=== PATIENT | male | born 1950 | race Caucasian/White ===

== ENCOUNTER 2017-04-07 09:19 | Emergency (ER) | payer MEDICARE ==
[2017-04-07 09:52] VITALS: BP 146/66
--- NOTE | 2017-04-07 09:59 | UC ---
Throat Pain/Nasal Robin HPI - HPI Summary HPI Summary: Patient c/o cough, body aches, sinus pressure, and chest congestion x 1 week. Symptoms worsening. Now with MCKEON and upper tooth tenderness in the sinus area. has had hoarse voice. has had concern that is is moving in to the chest. [ End ] - History of Current Complaint Chief Complaint: UCRespiratory Stated Complaint: COUGH,CHEST CONGESTION Time Seen by Provider: 04/07/17 09:57 Hx Obtained From: Patient Onset/Duration: Gradual Onset Severity: Mild Cough: Productive Associated Signs & Symptoms: Positive: Sinus Discomfort, Nasal Discharge - Epiglottits Risk Factors Epiglottis Risk Factors: Negative - Allergies/Home Medications Allergies/Adverse Reactions: Allergies Allergy/AdvReac Type Severity Reaction Status Date / Time cats Allergy Eyes Uncoded 04/07/17 09:52 Itchy/Swollen/Red/Watery hay fever Allergy Congestion Uncoded 04/07/17 09:52 Home Medications: Home Medications Fluticasone/Vilanterol MDI(NF) [Breo Ellipta MDI (NF)] 1 puff INH DAILY [History Confirmed 04/07/17] Sitagliptin Phosphate [Januvia] 1 tab PO DAILY 04/07/17 [History Confirmed 04/07] PMH/Surg Hx/FS Hx/Imm Hx Previously Healthy: Yes Endocrine History Of: Reports: Diabetes Denies: Thyroid Disease Cardiovascular History Of: Reports: Hypertension Denies: Cardiac Disorders Respiratory History Of: Reports: Asthma - Surgical History Surgical History: Yes Surgery Procedure, Year, and Place: Bilateral TKA 2007. Cataracts. left hand 2014 - Family History Known Family History: Positive: None - Social History Occupation: Retired Lives: With Family Alcohol Use: None Substance Use Type: None Smoking Status (MU): Never Smoked Tobacco Review of Systems Constitutional: Negative Skin: Negative Eyes: Negative ENT: Nasal Discharge, Other - sinus pressure to palpation Respiratory: Cough Cardiovascular: Negative Gastrointestinal: Negative Genitourinary: Negative Motor: Negative Neurovascular: Negative Musculoskeletal: Negative Neurological: Negative Psychological: Negative All Other Systems Reviewed And Are Negative: Yes Physical Exam Triage Information Reviewed: Yes Appearance: Well-Appearing, No Pain Distress, Well-Nourished Vital Signs: Initial Vital Signs Temp 98 F 04/07/17 09:46 Pulse 65 04/07/17 09:46 Resp 18 04/07/17 09:46 BP 146/66 04/07/17 09:46 Pulse Ox 99 04/07/17 09:46 Vital Signs Reviewed: Yes Eye Exam: Normal ENT Exam: Normal ENT: Positive: Nasal congestion, Nasal drainage, TM dull, Other: - mild frontal sinus tenderness. Negative: Pharyngeal erythema, Tonsillar swelling, Tonsillar exudate Dental Exam: Normal Neck exam: Normal Neck: Positive: 1 Respiratory Exam: Normal Cardiovascular Exam: Normal Cardiovascular: Positive: RRR, Pulses Normal, Murmur:Sys:Grade _?_/ - 2 Musculoskeletal Exam: Normal Neurological Exam: Normal Psychological Exam: Normal Skin Exam: Normal Throat Pain/Nasal Course/Dx - Course Course Of Treatment: Advised to see PCP for Murmur / BP / cardiovascular concerns. He will not start antibiotic unless Sx worsen and will f/u PCP - Differential Dx/Diagnosis Differential Diagnosis/HQI/PQRI: Pharyngitis, Tonsillitis, URI Provider Diagnoses: Sinusitis and heart murmur and hypertension Discharge - Discharge Plan Condition: Good Disposition: HOME Prescriptions: Amoxicillin/Clavulanate TAB* [Augmentin TAB 875*] 875 mg PO BID #14 tab Benzonatate [Benzonatate 200 MG CAP] 200 mg PO TID #20 cap Montelukast Sodium TAB* [Singulair TAB*] 10 mg PO BEDTIME #30 tab Patient Education Materials: Sinusitis (ED), Heart Murmur (ED) Referrals: Mingo Zimmer MD [Primary Care Provider] - 3 Days (for follow up and to discuss MURMUR with PCP) Additional Instructions: PLEASE DO NOT START ANTIBIOTIC UNLESS YOUR SYMPTOMS WORSEN OR ARE NOT IMPROVED IN 3-4 DAYS.
== END 2017-04-07 10:20 | disposition home or self-care (01) ==
LOC: UCCORT 09:19
DX: J32.9 Chronic sinusitis, unspecified (principal); R01.1 Cardiac murmur, unspecified; I10 Essential (primary) hypertension; E11.9 Type 2 diabetes mellitus without complications; J45.909 Unspecified asthma, uncomplicated; Z98.49 Cataract extraction status, unspecified eye
CPT/HCPCS: 99212; G0463

== ENCOUNTER 2017-07-29 16:46 | Emergency (ER) | payer MEDICARE ==
[2017-07-29 17:27] VITALS: BP 149/82
--- NOTE | 2017-07-29 17:47 | UC ---
Skin Complaint HPI - HPI Summary HPI Summary: Pt presents with c/o tenderness, erythema and possible insect bit to left medial forearm. Pt reports that he is unsure if he was it or stung by insect but noticed that he had tender reddened area on left medial forearm. 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 - History of Current Complaint Chief Complaint: UCSkin Time Seen by Provider: 07/29/17 17:40 Stated Complaint: IRRITATION FOREARM Hx Obtained From: Patient Onset/Duration: Gradual Onset, Lasting Days - 1, Still Present, Worse Since - initial onset Skin Exposure Onset/Duration: Days Ago - 1 Onset Severity: Mild Current Severity: Mild Location: Discrete - left mid, medial forearm Character: Swelling, Pain, Redness, Raised Aggravating: Touch Alleviating: Unknown Associated Signs & Symptoms: Positive: Tenderness Related History: Possible Reaction to: Insect - unsure - Allergy/Home Medications Allergies/Adverse Reactions: Allergies Allergy/AdvReac Type Severity Reaction Status Date / Time cats Allergy Eyes Uncoded 07/29/17 17:26 Itchy/Swollen/Red/Watery hay fever Allergy Congestion Uncoded 07/29/17 17:26 Review of Systems Constitutional: Negative Skin: Other - erythema, tenderness, mild swelling and eraser size scab in center of erythema Eyes: Negative ENT: Negative Respiratory: Negative Cardiovascular: Negative Gastrointestinal: Negative Genitourinary: Negative Motor: Negative Neurovascular: Negative Musculoskeletal: Negative Neurological: Negative Psychological: Negative All Other Systems Reviewed And Are Negative: Yes PMH/Surg Hx/FS Hx/Imm Hx - Additional Past Medical History Additional PMH: left knee septic joint X 2. Hx MRSA Previously Healthy: Yes - Surgical History Surgical History: Yes Surgery Procedure, Year, and Place: Bilateral TK Replacements 2008. Cataracts. left hand 2015. Left knee surgery X 4. two total knee replacments, 2 septic joint, spacers, antibiotic Infusion treatment - Family History Known Family History: Positive: Cardiac Disease - Social History Occupation: Retired Lives: With Family Alcohol Use: None Substance Use Type: None Smoking Status (MU): Never Smoked Tobacco Have You Smoked in the Last Year: No - Immunization History Most Recent Influenza Vaccination: No Physical Exam Triage Information Reviewed: Yes Appearance: Well-Appearing Vital Signs: Initial Vital Signs Temp 98.6 F 07/29/17 17:22 Pulse 68 09/03/17 17:22 Resp 16 07/29/17 17:22 BP 149/82 07/29/17 17:22 Pulse Ox 100 07/29/17 17:22 Vital Signs Reviewed: No Eye Exam: Normal ENT Exam: Normal Neck exam: Normal Respiratory Exam: Normal Cardiovascular Exam: Normal Musculoskeletal Exam: Other Musculoskeletal: Positive: Edema @ - left mid, medial forearm Neurological Exam: Normal Psychological Exam: Normal Skin Exam: Other - erythema ~ 5 cm in diameter, small dried scab in center of erythematous area, tenderness, Course/Dx - Differential Diagnoses - Skin Complaint Differential Diagnoses: Abscess, Cellulitis, MRSA - Diagnoses Provider Diagnoses: cellulitis. possible insect bite/sting Discharge - Discharge Plan Condition: Stable Disposition: HOME Prescriptions: Sulfamethox/Trimethoprim DS* [Bactrim DS 800/160 TAB*] 1 tab PO Q12H #14 tab Patient Education Materials: Cellulitis (ED) Referrals: Mingo Zimmer MD [Primary Care Provider] - If Needed Additional Instructions: Please follow up with your PCP or return to clinic as needed.
[2017-07-29] MEDS ORDERED: Sulfamethox/Trimethoprim DS 800/160* TAB PO ONE (17:48)
== END 2017-07-29 17:53 | disposition home or self-care (01) ==
LOC: UCCORT 16:46
DX: L03.114 Cellulitis of left upper limb (principal)
CPT/HCPCS: 99212; A9270-GY; G0463

== ENCOUNTER 2019-03-09 12:54 | Emergency (ER) | payer MEDICARE ==
[2019-03-09 13:38] VITALS: BP 135/68
--- NOTE | 2019-03-09 14:22 | UC ---
General HPI - HPI Summary HPI Summary: PER TRIAGE, Basel cell skin lesion removed from right upper arm on Sunday by Lopez Keller. Started hurting more on Sunday. Sunday evening started hurting more ( pt had been working in the yard for a couple of hours. Pt took tylenol with no releif. Redness around the wound is new today. Stitches intact, to be removed in 12-14 days. states the wound feels firmer than it has. Denies fever, denies odor from wound, drainage is clear red. No fever. + history of MRSA. - History of Current Complaint Chief Complaint: UCWounds Stated Complaint: SKIN COMPLAINT Time Seen by Provider: 03/09/19 14:12 Hx Obtained From: Patient, Family/Optical Effects Layout Person Onset/Duration: Gradual Onset Timing: Constant Pain Intensity: 0 Associated Signs & Symptoms: Negative: Fever - Allergy/Home Medications Allergies/Adverse Reactions: Allergies Allergy/AdvReac Type Severity Reaction Status Date / Time cats Allergy Eyes Uncoded 03/09/19 13:38 Itchy/Swollen/Red/Watery hay fever Allergy Congestion Uncoded 03/09/19 13:38 Home Medications: Home Medications Dulaglutide (NF) [Trulicity (NF)] 1.5 mg SUBCUT 03/09/19 [History] Finasteride TAB* [Proscar TAB*] 5 mg PO DAILY 03/09/19 [History Confirmed ] Gabapentin CAP(*) [Neurontin 300 CAP(*)] 300 mg PO BEDTIME 03/09/19 [History Confirmed 03/09/19] Insulin GLARGINE(*) [Lantus(*)] 34 units SUBCUT DAILY 03/09/19 [History Confirmed 03/09/19] Montelukast Sodium TAB* [Singulair 10 MG TAB*] 10 mg PO DAILY 03/09/19 [History Confirmed 03/09/19] PMH/Surg Hx/FS Hx/Imm Hx Endocrine History: Diabetes Cardiovascular History: Hypertension GI/ History: Gastroesophageal Reflux - Surgical History Surgical History: Yes Surgery Procedure, Year, and Place: Bilateral TK Replacements 2007. Cataracts. left hand 2015. Left knee surgery X 4. two total knee replacments, 2 septic joint, spacers, antibiotic Infusion treatment - Family History Known Family History: Positive: None, Cardiac Disease - Social History Lives: With Family Alcohol Use: None Substance Use Type: None Smoking Status (MU): Never Smoked Tobacco Have You Smoked in the Last Year: No - Immunization History Most Recent Influenza Vaccination: No Review of Systems All Other Systems Reviewed And Are Negative: Yes Skin: Positive: Rash Physical Exam Triage Information Reviewed: Yes Appearance: Well-Appearing Vital Signs: Initial Vital Signs Temp 98.6 F 03/09/19 13:25 Pulse 64 03/09/19 13:25 Resp 18 03/09/19 13:25 BP 135/68 03/09/19 13:25 Pulse Ox 99 03/09/19 13:25 Vital Signs Reviewed: Yes Eyes: Positive: Conjunctiva Clear Neck: Positive: Supple Respiratory: Positive: No respiratory distress Cardiovascular: Positive: RRR Musculoskeletal: Positive: ROM Intact Neurological: Positive: Alert Psychological: Positive: Normal Response To Family, Age Appropriate Behavior Skin Exam: Normal Skin: Positive: Rashes - R upper lateral arm post op site: 6" area or erythema, slight swelling and with 9 central stitches. area has tenderness to upper half. Gentral pressure causes puss to leak from upper area below the second stitch. No streaking, adenopathy and the arm has full s/v/m function. Course/Dx - Course Course Of Treatment: PROCEDURE: SITE PREP WITH BETADINE, 5 OF THE SUTURES WERE REMOVED. PRESSURE TO UPPER HALF EXPRESSED PUSS AND CULTURE WAS OBTAINED. UPPER HALF IRRIGATED WITH STERILE BLUNT NEEDLE AND STERILE NACL UNTIL NO ADDITIONAL PUSS DETECTED. PT TOLERATED WELL AND AREA LESS SWOLLEN POST TX. STERILE NON ADHERING DRESSING APPLIED OVER THE WOUND. CELLULITIS OUTLINED WITH SKIN MARKER. + HX MRSA THUS WILL COVER WITH DOXYCYCLINE. ATTEMPTED TO CALL HIS OUTSIDE CUTTER; HOWEVER, THERE WAS NO ANSWER. PT TO F/U IN AM. - Diagnoses Provider Diagnosis: Wound cellulitis Discharge - Sign-Out/Discharge Documenting (check all that apply): Patient Departure All imaging exams completed and their final reports reviewed: No Studies - Discharge Plan Condition: Stable Disposition: HOME Prescriptions: DOXYcycline CAP(*) [DOXYcycline 100MG CAP(*)] 100 mg PO BID 10 Days #20 cap Patient Education Materials: Wound Infection (DC) Referrals: Carmel Jolley [Medical Doctor] - 1 Day Additional Instructions: GO TO THE ER FOR ANY WORSENING - Billing Disposition and Condition Condition: STABLE Disposition: Home - Attestation Statements Provider Attestation: Per institutional requirements, I have reviewed the chart, however, I was not consulted specifically or made aware of this patient by the midlevel provider. I did not personally evaluate, interact with , or disposition this patient.
== END 2019-03-09 14:52 | disposition home or self-care (01) ==
LOC: UCCORT 12:54
DX: L03.113 Cellulitis of right upper limb (principal); I10 Essential (primary) hypertension; K21.9 Gastro-esophageal reflux disease without esophagitis; E11.9 Type 2 diabetes mellitus without complications; Z79.4 Long term (current) use of insulin
CPT/HCPCS: 87070; 87077; 87186; 87205; 87640; 87641; 99212; G0463